=== PATIENT | female | born 1975 | race Caucasian/White ===

== ENCOUNTER 2021-06-13 16:02 | Outpatient (CLI) | payer BC | END 2021-06-13 16:03 | disposition home or self-care (01) | LOC: CSHMRI 16:02 | PROVIDERS: ATTEND Surgery | DX: M54.50 Low back pain, unspecified (principal); M25.559 Pain in unspecified hip; M47.816 Spondylosis without myelopathy or radiculopathy, lumbar region | CPT/HCPCS: 72120; 72148 ==